=== PATIENT | male | born 1950 | race Caucasian/White ===

== ENCOUNTER 2016-05-23 07:58 | Emergency (ER) | payer OTHER ==
[2016-05-23 08:22] VITALS: BP 125/82
--- NOTE | 2016-05-23 09:02 | Diagnostic Imaging Report ---
FRANCISCO ZAMUDIO~ [facility] [address] [facility] [address] [address] ~ ~ ~ ~ Report Submission Date: May 23, 2016 8:59:05 AM CDT Patient ~ Study Name: PAULA WEBB ~ Date: May 23, 2016 8:25:02 AM CDT ~ Modality Type: CR Gender: M ~ Description: CHEST : 48 ~ Institution: [facility] Physician: FRANCISCO ZAMUDIO ~ ~ ~ ~ 4 views of the chest History: LEFT RIB PAIN FOR 4 DAYS, NO KNOWN TRAUMA The findings: No similar comparison studies Mild cardiomegaly with aortic calcification. Left basilar atelectasis No obvious acute left rib fracture on the submitted views Degenerative changes are noted at the left shoulder Impression: No obvious left rib fracture on the ~submitted views Mild cardiomegaly with left greater than right bibasilar atelectasis ~ Electronically signed on May 23, 2016 8:59:05 AM CDT by: Aurora FLORES
--- NOTE | 2016-05-23 09:03 | ED Physician Documentation ---
General Adult - HISTORIAN Historian: patient - HPI Stated Complaint: Left rib pain Chief Complaint: General Adult Onset: days ago (1) Timing: still present Severity: moderate Further Comments: yes (Pt is a 65 yo male with L sided rib pain that began yesterday when pt was getting out of a chair and simply pushed against the arm rest. Pt felt a pop. Pt inhibits breathing due to pain.) - ROS CONST: no problems EYES/ENT: none CVS/RESP: other (L rib pain, inhibited breathing) GI/: none MS/SKIN/LYMPH: none - PAST HX Past History: hypertension Surgeries/Procedures: other (hernia repair, ortho surgery) Allergies/Adverse Reactions: Allergies Allergy/AdvReac Type Severity Reaction Status Date / Time No Known Allergies Allergy Verified 05/23/16 08:12 Home Medications: Ambulatory Orders Medication Instructions Recorded Tamsulosin HCl [Flomax] 0.4 mg PO [id number] #3 cap.er.24h 05/16/15 - SOCIAL HX Smoking History: non-smoker - FAMILY HX Family History: No - VITAL SIGNS Vital Signs: Vital Signs Temp Pulse Resp BP Pulse Ox 98.9 F 89 18 125/82 96 05/23/16 08:13 05/23/16 08:13 05/23/16 08:13 05/23/16 08:13 05/23/16 08:13 - REVIEWED ASSESSMENTS Nursing Assessment Reviewed: Yes Vitals Reviewed: Yes Progress - Progress Progress: X-ray L ribs: No obvious left rib fracture on the submitted views. Mild cardiomegaly with left greater than right bibasilar atelectasis. ? occult rib fx by clinical exam. Rx Percocet (5/325) 1-2 po q 4-6 h prn # 20. ED Results Lab/Radiology - Orders Orders: ED Orders Category Date Time Status RIBS UNILATERAL W/ PA CHEST [RAD] Stat Exams 05/23/16 Taken General Adult Physical Exam - PHYSICAL EXAM GENERAL APPEARANCE: mild distress NECK: normal inspection, supple RESPIRATORY: no resp distress, breath sounds normal, other (L sided rib tenderness) CVS: reg rate & rhythm, heart sounds normal BACK: normal inspection SKIN: warm/dry, normal color EXTREMITIES: non-tender, normal range of motion, no evidence of injury NEURO: oriented X3, motor nml, sensation nml Discharge Clincal Impression: possible L rib fracture Referrals: Heron Cormier MD [Primary Care Provider] - Home Medications: Ambulatory Orders Tamsulosin HCl [Flomax] 0.4 mg PO [id number] #3 cap.er.24h 05/16/15 Condition: Good Disposition: 01 HOME, SELF-CARE Decision to Admit: NO Decision Time: 09:04
== END 2016-05-23 09:11 | disposition home or self-care (01) ==
LOC: ED 07:58
DX: R07.81 Pleurodynia (principal)
CPT/HCPCS: 71101; 99283

== ENCOUNTER 2016-08-26 09:54 | Emergency (ER) | payer OTHER ==
[2016-08-26] MEDS ORDERED: LORazepam 2 MG/ML VIAL ONE (10:16)
[2016-08-26] MEDS ORDERED: LORazepam 2 MG/ML VIAL IVP ONE (10:16)
[2016-08-26 10:19] LABS: BASOPHILS % 0.9 (0.0-1.5); EOSINOPHILS % 2.3 % (0.0-6.8); MEAN CORPUSCULAR HEMOGLOBIN 31.3 pg (28.0-34.0); MONOCYTES % 4.4 % (0.0-11.0); NEUTROPHILS # 6.4 # k/uL (1.4-7.7)
--- NOTE | 2016-08-26 10:19 | ED Physician Documentation ---
General Adult - HISTORIAN Historian: patient - HPI Stated Complaint: Right Sided Facial Droop Chief Complaint: General Adult Additional Information: Right facial droop and tingling since yesterday morning. - ROS CONST: no problems - PAST HX Past History: hypertension Other History: other (frozen shoulders x 6 months, improving) Allergies/Adverse Reactions: Allergies Allergy/AdvReac Type Severity Reaction Status Date / Time No Known Allergies Allergy Verified 08/26/16 10:14 - SOCIAL HX Smoking History: non-smoker - FAMILY HX Family History: Yes (PGA wit hstroke in 70's, heart disease mother's family in 70's) - VITAL SIGNS Vital Signs: Vital Signs Temp Pulse Resp BP Pulse Ox 97 F L 80 18 168/72 99 08/26/16 09:55 08/26/16 09:55 08/26/16 09:55 08/26/16 09:55 08/26/16 09:55 - REVIEWED ASSESSMENTS Nursing Assessment Reviewed: Yes Vitals Reviewed: Yes Progress - Progress Progress: Head CT without contrast Clinical history: Right facial droop since yesterday morning. Technique: CT examination of the brain is performed in contiguous axial slices without the use of contrast. Sagittal and coronal reconstructions are performed by the technologist. Findings: The fourth ventricle lies in a normal midline position. The ventricles and sulci are mildly prominent consistent with the patient's age. There is no hypodense or hyperdense mass or intracranial hemorrhage. Intracranial atherosclerosis is demonstrated. The visualized paranasal sinuses and the mastoid air cells are clear. Impression: 1. Negative noncontrast study for the patient's age. Electronically signed on Aug 26, 2016 10:37:43 AM CDT by: Martínez Tse Chest - two views Clinical history: Right facial droop. Findings: Examination of the chest in PA and lateral views with comparison to examination of 05/23/2016 demonstrates improved aeration and ventilation in the lungs since that time. The lungs are now clear. The cardiovascular and mediastinal silhouettes are within normal limits. Impression: 1. No active disease. Electronically signed on Aug 26, 2016 10:49:03 AM CDT by: Martínez Tse EKG: sinus rhythm 89 BPM, no ischemic changes 1054, accepted for transfer to [facility] ER for neurology eval ED Results Lab/Radiology - Orders Orders: ED Orders Category Date Time Status Place IV Lock 1T Care 08/26/16 10:06 Completed CHEST P.A.&LAT 2 VIEWS [RAD] Stat Exams 08/26/[address] BRAIN W/O CONTRAST Stat Exams 08/26/16 Ordered CBC/PLATELET/DIFF Routine Lab 08/26/16 10:10 Received CMP Routine Lab 08/26/16 10:10 Received TROPONIN I (cTnI) Stat Lab 08/26/16 10:10 Received URINALYSIS Routine Lab 08/26/16 Ordered Chem Sticks Med 08/26/16 10:06 Ordered 1 each CHEMQID PRN LORazepam [Ativan] Med 08/26/16 10:16 Once 0.5 mg IVP NOW ONE General Adult Physical Exam - PHYSICAL EXAM GENERAL APPEARANCE: mild distress (anxious) EENT: ENT inspection normal, pharynx normal, ANNA (right lids do not completely close) NECK: normal inspection, supple RESPIRATORY: no resp distress, chest non-tender, breath sounds normal CVS: reg rate & rhythm, heart sounds normal, no murmur ABDOMEN: soft, normal bowel sounds, no distension, non-tender RECTAL: deferred BACK: normal inspection, no CVA tenderness, other (no vertebral tenderness) SKIN: warm/dry, normal color EXTREMITIES: non-tender, normal range of motion, no evidence of injury, no edema , other (muscle strength 5/5 throughout) NEURO: CN's nml as tested, motor nml, sensation nml, cognition normal, other ( reflexes 2+ throughout. right facial droop from forehead to mandible/neck. Tongue protrusion w/o deviation) Discharge Clincal Impression: Facial paralysis on right side Referrals: Heron Cormier MD [Primary Care Provider] - 2 Days Condition: Fair Disposition: 02 XFER SHT-TRM HOSP Decision to Admit: NO Decision Time: 10:54
[2016-08-26 10:29] LABS: eGFR (African) > 60; eGFR (Non-African) > 60
[2016-08-26] MEDS ORDERED: NORMAL SALINE 500 ML IV.SOLN IV ONE (10:59)
[2016-08-26] MEDS ORDERED: KETOROLAC TROMETHAMINE 30 MG/1ML VIAL IVP ONE (10:59)
[2016-08-26] MEDS ORDERED: 0.9 % SODIUM CHLORIDE 1,000 ML IV ONE (10:59)
[2016-08-26] MEDS ORDERED: KETOROLAC TROMETHAMINE 30 MG/1ML VIAL ONE (10:59)
[2016-08-26 11:13] VITALS: BP 136/87
--- NOTE | 2016-08-26 14:40 | Diagnostic Imaging Report ---
TIM BRAGG - SABRA [facility] [address] [facility] [address] [address] Report Submission Date: Aug 26, 2016 10:49:03 AM CDT Patient Study Name: PAULA WEBB Date: Aug 26, 2016 10:22:27 AM CDT Modality Type: CR Gender: M Description: CHEST : 48 Institution: [facility] Physician: TIM BRAGG - SABRA Chest - two views Clinical history: Right facial droop. Findings: Examination of the chest in PA and lateral views with comparison to examination of 05/23/2016 demonstrates improved aeration and ventilation in the lungs since that time. The lungs are now clear. The cardiovascular and mediastinal silhouettes are within normal limits. Impression: 1. No active disease. Electronically signed on Aug 26, 2016 10:49:03 AM CDT by: Martínez FLORES
--- NOTE | 2016-08-26 14:41 | Diagnostic Imaging Report ---
TIM BRAGG [facility] [address] [facility] [address] [place] [id number] Report Submission Date: Aug 26, 2016 10:37:43 AM CDT Patient Study Name: PAULA WEBB Date: Aug 26, 2016 10:18:25 AM CDT Modality Type: CT\SR Gender: M Description: CT BRAIN W/O CONTRAST : 48 Institution: [facility] Physician: TIM BRAGG - SBARA Head CT without contrast Clinical history: Right facial droop since yesterday morning. Technique: CT examination of the brain is performed in contiguous axial slices without the use of contrast. Sagittal and coronal reconstructions are performed by the technologist. Findings: The fourth ventricle lies in a normal midline position. The ventricles and sulci are mildly prominent consistent with the patient's age. There is no hypodense or hyperdense mass or intracranial hemorrhage. Intracranial atherosclerosis is demonstrated. The visualized paranasal sinuses and the mastoid air cells are clear. Impression: 1. Negative noncontrast study for the patient's age. Electronically signed on Aug 26, 2016 10:37:43 AM CDT by: Martínez FLORES
== END 2016-08-26 11:10 | disposition short-term general hospital (02) ==
LOC: ED 09:54
DX: G81.91 Hemiplegia, unspecified affecting right dominant side (principal)
CPT/HCPCS: 70450; 71020; 80053; 84484; 85025; J1885; J2060; J7030; 96361; 96374; 96375; 99284; S1016

== ENCOUNTER 2017-07-13 09:33 | Outpatient (CLI) | payer OTHER ==
[2017-07-13 10:19] LABS: eGFR (African) > 60; eGFR (Non-African) > 60
== END 2017-07-13 09:34 ==
LOC: LAB 09:33
PROVIDERS: ATTEND Family Medicine
DX: I10 Essential (primary) hypertension (principal)
CPT/HCPCS: 36415; 80053; 80061

== ENCOUNTER 2017-07-19 09:41 | Outpatient (CLI) | payer OTHER | END 2017-07-19 09:42 | LOC: LAB 09:41 | PROVIDERS: ATTEND Family Medicine | DX: R73.9 Hyperglycemia, unspecified (principal) | CPT/HCPCS: 36415; 83036 ==

== ENCOUNTER 2019-01-13 07:03 | Outpatient (CLI) | payer OTHER ==
[2019-01-13 07:49] LABS: HDL 49 mg/dL (>40); eGFR (Non-African) > 60
== END 2019-01-13 07:08 ==
LOC: LAB 07:03
PROVIDERS: ATTEND Family Medicine
DX: I10 Essential (primary) hypertension (principal)
CPT/HCPCS: 36415; 80053; 80061